=== PATIENT | female | born 1975 | race Caucasian/White ===

== ENCOUNTER 2016-07-20 05:00 | Inpatient (IN) | payer MEDICAID ==
[2016-07-18 12:57] LABS: BASOPHILS 0.6 % (0-2); EOSINOPHILS 7.3 % (0-7); HEMATOCRIT 36.9 % (36.0-48.0); HEMOGLOBIN 12.1 g/dL (12-16); IMMATURE GRANULOCYTES 0.2 % (0-5); LYMPHOCYTES 38.6 % (15-50); MCH 29.9 pg (26.0-34.0); MCHC 32.8 g/dL (31.0-37.0); MCV 91.1 fL (80.0-100.0); MEAN PLATELET VOLUME 10.5 fL (7.4-10.4); MONOCYTES 6.5 % (2-11); NEUTROPHILS 46.8 % (40-80); RBC 4.05 10x6/uL (4.00-5.40); RDW 12.9 % (11.5-14.5); WBC 6.2 10x3/uL (4.8-10.8)
[2016-07-18 12:58] LABS: PLATELET COUNT 261 10x3/uL (130-400)
[2016-07-18 13:09] LABS: CALCIUM 8.6 mg/dL (8.5-10.1); CARBON DIOXIDE 25.7 mmol/L (21.0-32.0); CHLORIDE - SERUM 107 mmol/L (98-107); CREATININE - SERUM 0.8 mg/dL (0.6-1.3); POTASSIUM - SERUM 4.1 mmol/L (3.5-5.1); SODIUM 141 mmol/L (136-145); UREA NITROGEN 12 mg/dL (7-18); eGFR NON AFRICAN AMERICAN 85 mL/min (90-120)
[2016-07-18 13:17] LABS: CALC OSMOLALITY 279 mosm/kg (275-300); GLUCOSE 87 mg/dL (74-106)
[~2016-07-20] VITALS: Ht 172.7 cm; Wt 100.0 kg
[2016-07-20] VITALS (15 sets, daily range): BP systolic 91–116; BP diastolic 56–72; Ht 172.7 cm; Wt 100.0 kg
[~2016-07-20 05:00] MED LIST: ALEVE220 MG PO; CLEOCIN HCL300 MG PO; HYDROCODON-ACE1 EAC7 PO; IBUPROFEN600 MG PO; OXYCODONE HCL10 MG PO; PERCOCET 5-3251 TAB PO; TENORMIN25 MG PO
[2016-07-20 06:33] LABS: HCG URINE NEGATIVE (NEGATIVE)
--- NOTE | 2016-07-20 07:32 | HP ---
PATIENT: IZABEL GREY MEDICAL RECORD: [id number] ACCOUNT: [id number] LOCATION:[facility] [place]- : 79 ADMISSION DATE: 07/20/16 HISTORY AND PHYSICAL EXAMINATION HISTORY OF PRESENT ILLNESS: This patient is a 41-year-old 1, para 1 white female with pelvic pain, described as bilaterally "in her ovaries." She has undergone a partial salpingectomy in the recent past and adhesions were noted at that time. She also was hospitalized shortly after surgery with pelvic infection. She desires hysterectomy and bilateral oophorectomy for relief of her pelvic pain. Most recent Pap smear in March and normal. MEDICAL HISTORY: DRUG ALLERGIES: None known. CURRENT MEDICATIONS: Prozac and atenolol. REVIEW OF SYSTEMS: No chest pain, no dyspnea. PAST MEDICAL HISTORY: Denies heart disease, diabetes or hypertension. FAMILY HISTORY: Noncontributory. SOCIAL HISTORY: Previously , now . HABITS: Smoker. She is cautioned regarding smoking prior to her surgical procedure and agrees not to do so. Ethanol, none. PHYSICAL EXAMINATION: VITAL SIGNS: Blood pressure 110/68, weight 220 pounds with a BMI of 33. HEENT: Grossly unremarkable. LUNGS: Clear. HEART: Regular rate and rhythm. ABDOMEN: Soft and nontender without distention. PELVIC: Examination is current and deferred for anesthesia. EXTREMITIES: No cyanosis, clubbing or edema. NEUROLOGIC: Grossly intact. IMPRESSION: Pelvic pain described as bilateral, history of a previous salpingectomy with adhesions noted. The patient desires hysterectomy with bilateral oophorectomy. Understanding that she will need hormones for relief of menopausal symptoms, have further discussed risks of surgery, anesthesia, infection, bleeding, injury to other organs, possibility of repeat surgeries, repeat hospitalization depending upon the problems. All questions were answered. PLAN: Total abdominal hysterectomy with bilateral oophorectomy, all indicated procedures. TRANSINT:[id number] Voice Confirmation ID: [id number] DOCUMENT ID: [id number] HISTORY AND PHYSICAL [id number] IZABEL GREY BRENDA MD at 0732 CC: [id number] DICTATION DATE: 07/18/16 1308 JALOUSIE INSTALLER: 07/18/16 1618 ADM IN [place] [id number] [place] [address]
--- NOTE | 2016-07-20 11:35 | NUR ---
RECIEVED PT FROM RR VIA BED. PT ANSWERS QUESTIONS APPROPRIATLEY AND DOZES OFF IN BETWEEN QUESTIONS. PT RATES PAIN 5/10 AT INCISION SITE. IV NOTED IN RIGHT HAND WITH LR INFUSING. SITE CLEAN DRY AND INTACT. BOWEL SOUNDS HYPOACTIVE X 4; PT DENIES PASSING GAS; BIKINI LINE INCISION NOTED TO BE CLEAN DRY AND INTACT WITH STERI STRIPS; VO CATH IN PLACE WITH 400MLS METH BLUE URINE NOTED IN COLLECTION BAG. SCD LEGGINGS CONNECTED TO PUMP AND TURNED ON PER RR RN. ICE PACK APPLIED TO INCISION, POC DISCUSSED WITH PT AND PT VERBALIZES UNDERSTANDING. FRESH WATER AND [place] [employer] [employer]A DRINK PROVIDED PER PT REQUEST. PT DENIES FURTHER NEEDS AT THIS TIME. IN REGARDS TO HOME MEDS, PT STATES, "I WAS ON ATENELOL AND SOMETHING FOR ANXIEY AND DEPRESSION, BUT I HAVE NOT TAKEN EITHER OF THEM IN A LONG TIME SO I GUESS I DONT HAVE HOME MEDS."
--- NOTE | 2016-07-20 12:00 | NUR ---
QUALITY CONTROL SYSTEMS MANAGER DEMEROL INITIATED PER ORDERS. TAY MARROQUIN RN WITNESSED. PT DEMONSTRATES UNDERSTANDING OF USE BY PRESSING BUTTON AT THIS TIME.
--- NOTE | 2016-07-20 13:00 | NUR ---
DR WELLINGTON CALLED FOR CLARIFICATION OF MED ORDERS. STATES TO HOLD ANSAID AND PEPCID UNTIL PATIENT IS NO LONGER ON LEAD PROJECT ENGINEER FOR PAIN CONTROL. PROCEED WITH TORADOL 30MG IV Q6HRS AT THIS TIME. PT S.O. HERE WITH PATIENT. PT BELONGINGS RETRIEVED FROM OUTPATIENT AND GIVEN TO S.O. AT THIS TIME. INCISION REMAINS C/D/I WITH STERI STRIPS. PT RATES PAIN 9/10 WITH MOVEMENT.
--- NOTE | 2016-07-20 13:10 | NUR ---
TORADOL 30MG GIVEN SLOW IVP.
--- NOTE | 2016-07-20 13:20 | NUR ---
PT TURNED TO RIGHT TILT POSITION AND COUGHS AND DEEP BREATHS. IS USED WITH GOOD EFFORT.
[2016-07-20 14:44] LABS: BASOPHILS 0.1 % (0-2); EOSINOPHILS 0 % (0-7); HEMATOCRIT 30.2 % (36.0-48.0); HEMOGLOBIN 9.9 g/dL (12-16); IMMATURE GRANULOCYTES 0.2 % (0-5); LYMPHOCYTES 4.9 % (15-50); MCH 30.1 pg (26.0-34.0); MCHC 32.8 g/dL (31.0-37.0); MCV 91.8 fL (80.0-100.0); MEAN PLATELET VOLUME 10.1 fL (7.4-10.4); MONOCYTES 1.5 % (2-11); NEUTROPHILS 93.3 % (40-80); PLATELET COUNT 232 10x3/uL (130-400); RBC 3.29 10x6/uL (4.00-5.40); RDW 12.8 % (11.5-14.5); WBC 11.5 10x3/uL (4.8-10.8)
--- NOTE | 2016-07-20 14:50 | NUR ---
FRESH ICE PACK APPLIED TO INCISION SITE, PT TURNED TO BACK PER REQUEST AND RAISED HIGHER IN THE BED. PT COUGHS AND DEEP BREATHES WITH GOOD EFFORT. RATES PAIN 6-7/10 AND DENIES NEEDS AT THIS TIME.
--- NOTE | 2016-07-20 16:00 | NUR ---
PT IN SEMI FOWLERS POSITION RESTING WITH EYES CLOSED. RESP. EVEN AND UNLABORED. NO DISTRESS NOTED.
--- NOTE | 2016-07-20 17:00 | NUR ---
MAISHA CARE GIVEN WITH BATH WIPES. PT USES IS X 5 UP TO 2000 AND COUGHS WITH STRONG EFFORT X 3. VO BAG READS 700MLS OF METH BLUE URINE, HOWEVER, AFTER EMPTYING BAG INTO [place] HAT ONLY 450MLS TOTAL VOLUME ACTUALLY PRESENT. BAG LEVEL SHOWED AN OUTPUT OF 300MLS FROM PT ARRIVAL TO FLOOR BUT ONLY 50MLS INCREASE ACCORDING TO ACTUAL TOTAL VOLUME. BAG MEASUREMENT NOT ACCURATE. WILL CONTINUE TO MONITOR. BLADDER NOT DISTENDED.
--- NOTE | 2016-07-20 18:15 | NUR ---
PT RESTING WITH EYES CLOSED. AROUSES TO VERBAL STIMULATION. PT COUGHS AND DEEP BREATHES WITH GOOD EFFORT. PT TILTED TO LEFT SIDE. 100MLS EMPTIED FROM VO MAKING TOTAL OUTPUT OF 550MLS SINCE INSERTION THIS AM. WILL REPORT TO PM SHIFT.
--- NOTE | 2016-07-20 19:43 | NUR ---
RCVD PT FROM Margaret TAMAYO RN. PT LYING ON BACK, HOB 45 DEGREES. PT AAOX3. RATES CURRENT PAIN 7/10 IN ABD AND DESCRIBES THIS BURNING/CRAMPING PAIN. PT REPORTS USING SCALE RECLAMATION TENDER. ADV PT WILL RETURN WITH NEXT DOSE OF TORADOL. PT VERBALIZED UNDERSTANDING. VSS. BREATH SOUNDS CLEAR & UNLABORED X2. HR-RRR, PPP, NO EDEMA NOTED TO BLE. PIV TO RT HAND PATENT, NO EYRTHEMA OR EDEMA NOTED TO SITE, INFUSING D5 LR @ 125ML/HR AND MEPERIDINE SCALE RECLAMATION TENDER. BOWEL SOUNDS HYPOACTIVE @ RLQ, ACTIVE X3. NO TENDERNESS TO ABD ON PALPATION OTHER THAN INCISION AREA. BLE C/D/I WITH STERISTRIPS OVER INCISION. SKIN RED AND COLD DUE TO ICE PACK. ADV PT WILL GIVE SKIN A REST FROM ICE. WILL RETURN WITH FRESH ICE CAP IN 1H. PUMPS CLEARED AT THIS TIME. 200ML CLEAR GREEN URINE NOTED IN VO. CLEAN GOWN PROVIDED AT THIS TIME. SCD'S IN PLACE AND CONNECTED TO PUMP. FRESH ICE WATER PROVIDED PER PT REQUEST. PT DENIES FURTHER NEEDS AT THIS TIME. BED LOW, WHEELS LOCKED, CL IN REACH, SIDE RAILS UP X2.
--- NOTE | 2016-07-20 20:01 | NUR ---
CURRENT D5LR INFUSION COMPLETE. OLD BAG DOWN, NEW BAG UP TO PRESENT TUBING. TORADOL 30MG/1ML GIVEN SIVP PER ORDERS. SEE EMAR. PT DENIES FURTHER NEEDS AT THIS TIME. WILL CONT. TO MONITOR.
--- NOTE | 2016-07-20 20:31 | NUR ---
PAIN REASSESSMENT COMPLETE. PT RATES PAIN 6/10 IN ABD AT THIS TIME. ADV PT TO USE LABORER DRIVER EACH TIME THE BUTTON TURNS GREEN. PT VERBALIZED UNDERSTANDING. 200 ML CLEAR GREEN URINE NOTED IN VO BAG. FRESH ICE PACK PLACED OVER INCISION. PT DENIES FURTHER NEEDS AT THIS TIME. LIGHTS DIMMED PER PT REQUEST.
--- NOTE | 2016-07-20 21:42 | NUR ---
ROUNDS MADE. PT REPOSITIONS SELF TO RT TILT WITH MINIMAL ASSISTANCE. PILLOW PLACED AT BACK FOR SUPPORT. PT RATES PAIN 5/10 CURRENTLY AND STATES "IT'S GETTING BETTER." VSS. 100 ML CLEAR GREEN TINGED URINE EMPTIED FROM VO BAG. BLADDER REMAINS NONDISTENDED. PT DENIES FURTHER NEEDS AT THIS TIME.
--- NOTE | 2016-07-20 22:37 | NUR ---
PT USES I.S. X10 PULLING 2000 ML. PT REPORTS DOING THIS Q1HR UP UNTIL NOW. FRESH CUP OF ICE WATER AND ORANGE POPSICLE PROVIDED PER PT REQUEST. 200ML EMPTIED FROM VO AT THIS TIME. PT DENIES FURTHER NEEDS. AND CONTS TO RATE PAIN 5/10. WILL CONT. TO MONITOR.
--- NOTE | 2016-07-20 23:43 | NUR ---
PT REPOSITIONED TO LT TILT WITH PILLOW @ BACK FOR SUPPORT. PT REPORTS PAIN IN RUQ, TENDER UPON PALPATION. PT REPORTS FEELING IF IT IS PULLING WHEN SHE MOVES HER RIGHT ARM. NO DISTENTION NOTED, ABD PALPATES SOFT. PT REPORTS PAIN IN SHOULDER WELL. ADV PT IT COULD BE GAS PAIN. PT REPORTS SHE HAS NOT PASSED GAS SINCE SURGERY. WILL CONT. TO MONITOR. 250 ML CLEAR SLIGHTLY GREEN TINGED URINE EMPTIED FROM VO BAG. VSS. PUMPS CLEARED AT THIS TIME. PT PUSHES RN CARDIOLOGY BUTTON AFTER REPOSITIONING AND STATES "THE PAIN MEDICINE HELPS SOME, BUT NOT COMPLETELY." ADV PT OF TORADOL SCHEDULE AND WILL REDOSE @ 0200. PT VERBALIZED UNDERSTANDING AND DENIES FURTHER NEEDS.
[2016-07-21] VITALS (17 sets, daily range): BP systolic 98–115; BP diastolic 53–67
--- NOTE | 2016-07-21 01:57 | NUR ---
PT LYING IN LT TILT AND AROUSES UPON THIS RN ENTERING ROOM. 200 ML CLEAR, GREEN TINTED URINE EMPTIED FROM VO AT THIS TIME. PUMPS CLEARED. PT REPOSITIONS SELF TO RT TILT WITH PILLOW @ BACK FOR COMFORT. PT PRESSES PIE MAKER BUTTON AT THIS TIME. FRESH ICE WATER AND FRESH ICE PACK FOR INCISION PROVIDED PER PT REQUEST. PT DENIES FURTHER NEEDS.
--- NOTE | 2016-07-21 02:10 | NUR ---
TORADOL 30MG/1ML GIVEN PER ORDERS. SEE EMAR. LIGHTS TURNED OFF PER PT REQUEST. WILL CONT. TO MONITOR.
--- NOTE | 2016-07-21 02:42 | NUR ---
PAIN REASSESSMENT COMPLETED. PT RESTING, EYES CLOSED, RESP EVEN & UNLABORED. PT LEFT UNDISTURBED AT THIS TIME.
--- NOTE | 2016-07-21 03:54 | NUR ---
CURRENT D5 LR INFUSION COMPLETE. OLD BAG DOWN, NEW BAG UP TO PRESENT TUBING. PT REPOSITIONS SELF TO LT TILT. PILLOW PLACED @ BACK FOR SUPPORT. 200ML CLEAR GREEN TINTED URINE NOTED IN VO BAG. PT DENIES NEEDS AT THIS TIME.
--- NOTE | 2016-07-21 05:21 | NUR ---
HAND I TUBE BENDER SYRINGE CHANGED. SYRINGE NOTED TO BE EMPTIED AND PLACED IN SHARPS CONTAINER IN ROOM. 200ML CLEAR GREEN URINE EMPTIED FROM VO BAG. PT'S FEET COVERED WITH EXTRA BLANKET PER REQUEST. PT DENIES FURTHER NEEDS AT THIS TIME.
[2016-07-21 05:30] LABS: HEMATOCRIT 25.6 % (36.0-48.0); HEMOGLOBIN 8.4 g/dL (12-16); MCH 29.6 pg (26.0-34.0); MCHC 32.8 g/dL (31.0-37.0); MCV 90.1 fL (80.0-100.0); MEAN PLATELET VOLUME 9.9 fL (7.4-10.4); RBC 2.84 10x6/uL (4.00-5.40); RDW 12.8 % (11.5-14.5); WBC 9.9 10x3/uL (4.8-10.8)
--- NOTE | 2016-07-21 06:12 | NUR ---
PAIN REASSESSMENT COMPLETED. PT RESTING WITH EYES CLOSED, RESP EVEN & UNLABORED. PT LEFT UNDISTURBED AT THIS TIME.
--- NOTE | 2016-07-21 06:26 | NUR ---
DR JERRY ON UNIT. REPORT GIVEN ON H&H OF 8.[address] JERRY ORDER PLACED FOR 2 UNITS OF PRBC.
--- NOTE | 2016-07-21 08:30 | NUR ---
IN ROOM ROUNDING ON PT. PHYSICAL ASSESSMENT DONE. SEE SHIFT ASSESSMEN. IV INFUSING VIA PUMP A 125ML/HR TO RIGHT HAND. SITE CLEAN DRY AND INTACT. BOWEL SOUNDS HYPOACTIVE IN RIGHT UPPER QUADRANT. PT DENIES PASSING GAS SINCE PROCEDURE. ABD NOT DISTENDED. BIKINI LINE INCISION NOTED TO BE C/D/I WITH STERI STRIPS. [address] DRAINING TO GRAVITY. 75MLS URINE IN COLLECTION CONTAINER. CATH DCD WITH CATH TIP INTACT. PT TOLERATED WELL. SCDS IN PLACE AND CONNECTED TO PUMP. CAR KNOCKER DISCONTINUED AND WASTED; IV SALINE LOCKED AT THIS TIME. PT DENIES FURTHER NEEDS AT THIS TIME.
--- NOTE | 2016-07-21 09:15 | NUR ---
PT AMBULATES TO RESTROOM PER SELF AND VOIDS 50MLS INTO [place].
--- NOTE | 2016-07-21 10:33 | NUR ---
ESTRADIOL PATCH PLACED ON RLQ OF PT ABDOMEN. PT INSTRUCTED ON NEW MEDICATION AND VERBALIZES UNDERSTANDING. EXPLAINED TO PT THAT MD WOULD STILL LIKE TO INFUSE PRBCS DUE TO AM LAB RESULTS. PT CONSENTS TO PROCEED WITH TRANSFUSION. 18G IV PLACED IN LEFT HAND X 1 ATTEMPT. PT TOLERATED WELL. PT RATING PAIN 5/10 AND REQUESTS PO PAIN MEDICATION AT THIS TIME.
--- NOTE | 2016-07-21 10:52 | NUR ---
OXYCODONE 5MG GIVEN PO FOR PT PAIN. SEE EMAR FOR DETAILS.
--- NOTE | 2016-07-21 11:15 | NUR ---
1ST UNIT PRBCS STARTED VIA PUMP AT 150ML/HR TO 18G IV IN LEFT HAND. PT TOLERATING WELL AT THIS TIME. CONTINUES TO REPORT FEELING TIRED. LEA SOSA VERIFIED BLOOD PRIOR TO INITIATION.
--- NOTE | 2016-07-21 13:35 | NUR ---
INFUSION OF FIRST UNIT OF PRBCS COMPLETED. LINE FLUSHED WITH NS. IV SALINE LOCKED. PT REQUESTS TO SHOWER. PT ASSISTED OUT OF BED AND AMBULATES PER SELF. PT VOIDS 200MLS GREEN TINGED URINE INTO [place] AND ASSISTED TO SHOWER. LINENS CHANGED AT THIS TIME. PT PROVIDED WITH PERSONAL HYGIENE PRODUCTS AND DENIES NEED FOR FURTHER ASSISTANCE. AYALA SOSA FROM [facility] REMAINS IN ROOM WITH PT THROUGHOUT SHOWER.
--- NOTE | 2016-07-21 14:30 | NUR ---
PT BACK IN BED AFTER SHOWER AND ORAL HYGIENE CARE DONE PER SELF. SCDS RECONNECTED. PT RATES PAIN 5-6/10 AT INCISION SITE AND REQUESTS TORADOL.
--- NOTE | 2016-07-21 14:42 | NUR ---
30MG TORADOL GIVEN SLOW IVP. SALINE LOCK FLUSED.
--- NOTE | 2016-07-21 14:50 | NUR ---
2ND UNIT PRBCS STARTED AND VERIFIED WITH AYALA SOSA FROM [facility]. UNIT # [id number]. LIGHTS DIMMED.
--- NOTE | 2016-07-21 16:54 | NUR ---
PT BACK TO BED AFTER VOIDING 300MLS OF GREENISH BLUE TINGED URINE INTO [place]. PT RATES PAIN 6/10 AND REQUESTS PAIN MEDICATION. OXYCODONE GIVEN PO, SEE EMAR. 1655 2ND UNIT OF PRBCS INFUSION COMPLETED AT THIS TIME. LINE FLUSHED WITH NS AND SALINE LOCKED. OLAMIDE LARIOS PROVIDED PER PT REQUEST. PT DENIES FURTHER NEEDS AT THIS TIME.
--- NOTE | 2016-07-21 19:14 | NUR ---
REPORT GIVEN TO 7 P SHIFT
--- NOTE | 2016-07-21 19:42 | NUR ---
RCVD PT FROM AM SHIFT FOR CONT. CARE. PT ON BACK IN BED @ SEMI PINO WITH C/O PAIN 05/16. PT AAOX3. DENIES PASSING GAS OR BM TODAY. BREATH SOUNDS CLEAR & UNLABORED X2. BOWEL SOUNDS ACTIVE X4. SOME TENDERNESS ON PALPATION AROUND INCISION AREA. BLE C/D/I WITH SOME REDNESS AND BRUISING NOTED AROUND ICISION AREA. PERIPAD PLACED OVER INCISION AND TEACHING PROVIDED ON KEEPING INCISION CLEAN AND DRY. PT VERBALIZED UNDERSTANDING. PT REPORTS VOIDING WITHOUT DIFFICULTY. ADV PT TO MEASURE NEXT 2 VOIDS IN ORDER TO ASSESS OUTPUT. PT VERBALIZED UNDERSTANDING. VSS, HR-RRR, PPP. NO EDEMA NOTED TO BLE. ADV PT TO AMB AROUND ROOM AND IN BARRERA TO ALLEVIATE GAS PAINS. PT VERBALIZED UNDERSTANDING. PIV TO LT HAND SL WITH NO ERYTHEMA OR EDEMA NOTED TO SITE. PT DENIES NEEDS AT THIS TIME. WILL CONT TO MONITOR. BED LOW, WHEELS LOCKED, CL IN REACH, SIDE RAILS UP X2.
--- NOTE | 2016-07-21 20:12 | NUR ---
PT AMB TO NURSE DESK. STEADY, BUT SLOW GAIT NOTED. PT AMB TO END OF BARRERA AND BACK TO ROOM WITH NO ASSISTANCE.
--- NOTE | 2016-07-21 20:52 | NUR ---
PEPCID 20 MG X1 TAB AND TORADOL 30MG/1ML GIVEN PER ORDERS. SEE EMAR. PT REPORTS PASSING GAS AFTER AMB AND STATES SHE'S FEELING SOMEWHAT BETTER. PT DENIES FURTHER NEEDS AT THIS TIME. WILL CONT. TO MONITOR.
--- NOTE | 2016-07-21 21:23 | NUR ---
PAIN REASSESSMENT COMPLETE. PT STATES "IT'S ABOUT THE SAME, BUT I THINK IT'S JUST GAS." PT IS UP TO BATHROOM AT THIS TIME WITH NO ASSISTANCE. STEADY GAIT NOTED. PT DENIES NEEDS AT THIS TIME. WILL CONT. TO MONITOR.
--- NOTE | 2016-07-21 21:45 | NUR ---
LYING ON BACK WITH EYES CLOSED. RESPIRATIONS REGULAR. 450CC GREEN COLORED URINE IN [place] HAT FROM LAST VOID.
--- NOTE | 2016-07-21 22:05 | NUR ---
425 ML GREEN URINE EMPTIED FROM [place] HAT PER Yudith GUERRIER RN. PT RINGS CL, REQUESTS THIS RN TO TURN AC UP BECAUSE SHE'S COLD. SAME PROVIDED. PT DENIES PAIN OR FURTHER NEEDS AT THIS TIME.
--- NOTE | 2016-07-21 23:08 | NUR ---
PT LYING ON BACK, EYES CLOSED, RESP EVEN & UNLABORED, PT LEFT UNDISTURBED AT THIS TIME.
--- NOTE | 2016-07-21 23:59 | NUR ---
LYING ON BACK WITH EYES CLOSED. RESPIRATIONS REGULAR.
[2016-07-22 01:56] VITALS: BP 115/57
--- NOTE | 2016-07-22 01:56 | NUR ---
PT LYING ON BACK AWAKE IN BED WITH NO C/O OF PAIN. PT REPORTS HAVING BM AND PASSING MORE GAS AND STATES "I FEEL BETTER NOW THAT THINGS ARE MOVING MORE." PT DENIES FURTHER NEEDS. WILL CONT. TO MONITOR.
--- NOTE | 2016-07-22 03:00 | NUR ---
PT RINGS CL, THIS RN TO BEDSIDE. PT REQUESTS & RECEIVES OXYCODONE IR PER ORDERS. SEE EMAR. PT RATES CURRENT PAIN 06/15. PT DENIES FURTHER NEEDS AT THIS TIME. 200 ML GREEN TINTED URINE EMPTIED FROM [facility] AT THIS TIME.
--- NOTE | 2016-07-22 03:45 | NUR ---
PT RESTING, EYES CLOSED, RESP EVEN & UNLABORED. PT LEFT UNDISTURBED AT THIS TIME.
--- NOTE | 2016-07-22 05:55 | NUR ---
PT RESTING, EYES CLOSED, RESP EVEN & UNLABORED. PT LEFT UNDISTURBED AT THIS TIME.
--- NOTE | 2016-07-22 06:36 | NUR ---
PT RINGS CL. THIS RN TO BEDSIDE. PT REQUESTS & RECEIVES FRESH ICE WATER. DENIES PAIN OR FURTHER NEEDS AT THIS TIME.
--- NOTE | 2016-07-22 08:25 | NUR ---
PATIENT GIVEN OXYCODONE AND PEPCID. SHE RATES HER PAIN A 5, WITH PRIMARY LOCATION OF PAIN ON THE RIGHT SIDE OF HER INCISION. SHE IS AMBULATORY AND GETTING UP TO THE RESTROOM INDEPENDENTLY. SHE HAS HAS A BOWEL MOVEMENT THIS MORNING. SHE IS EXPECTING TO GO HOME TODAY. ADVISED TO FILL OUT HER LUNCH MENU. SHE IS WITHOUT C/O NAUSEA, ATE A REGULAR DIET.
--- NOTE | 2016-07-22 09:47 | NUR ---
PATIENT RESTING IN HER BED WITH HOB UP 45 DEGREES. SHE STATES THAT HER PAIN IS A 4-5 IN HER INCISION THAT IS REALLY NOT THAT BAD UNTIL SHE MOVES AND THE PAIN IS SHARP. ENCOURAGED HER TO WALK A BIT, TO NURSERY WINDOWS AND BACK AT LEAST VIET HELP LOOSEN HER MUSCLES. SHE AGREED.
[2016-07-22 13:46] LABS: BASOPHILS 0.4 % (0-2); EOSINOPHILS 3.2 % (0-7); HEMATOCRIT 30.5 % (36.0-48.0); IMMATURE GRANULOCYTES 0.4 % (0-5); LYMPHOCYTES 28.7 % (15-50); MCH 29.2 pg (26.0-34.0); MCHC 32.8 g/dL (31.0-37.0); MCV 88.9 fL (80.0-100.0); MEAN PLATELET VOLUME 10.6 fL (7.4-10.4); MONOCYTES 8.3 % (2-11); PLATELET COUNT 169 10x3/uL (130-400); RDW 13.3 % (11.5-14.5); WBC 7.9 10x3/uL (4.8-10.8)
[2016-07-22 13:49] LABS: RBC 3.43 10x6/uL (4.00-5.40)
[2016-07-22] MEDS ORDERED: MEPERIDINE HCL50 MG PO (18:08)
[2016-07-22] MEDS ORDERED: IBUPROFEN600 MG PO ×2 (18:09→18:11)
[2016-07-22] MEDS ORDERED: ESTRADERM 0.00.05 MG TD (18:09)
--- NOTE | 2016-07-22 19:19 | NUR ---
IV REMOVED FROM THE LEFT FA. CATHETER WAS FULLY INTACT. HER MANAGER CASH WILL BE HERE AT 8PM TODAY. ORAL PAIN MEDICATION GIVEN. FRESH WATER GIVEN WELL. PATIENT DENIES ANY BLEEDING TODAY.
--- NOTE | 2016-07-26 08:38 | OP ---
PATIENT NAME: IZABEL GREY MEDICAL RECORD: [id number] :79 LOCATION:[place] [facility].1274 ADMISSION DATE:07/20/16 SURGEON: NELIDA WELLINGTON MD DATE OF OPERATION: 07/20/2016 PREOPERATIVE DIAGNOSES: Pelvic pain, history significant pelvic surgery and adhesion, previous salpingectomy. POSTOPERATIVE DIAGNOSES: Extensive adhesions in the pelvis, ovaries, uterus, cervix to bowel and sidewall. PROCEDURE: Supracervical hysterectomy, bilateral oophorectomy, extensive lysis of adhesions. SURGEON: Nelida Wellington MD and Alberto Ocampo MD consulted regarding integrity of the bowel. ANESTHESIA: General. FINDINGS: Extensive dense adhesions of the uterus, ovaries to pelvic sidewall and bowel, status post bilateral salpingectomy. ESTIMATED BLOOD LOSS: 800 cc. COMPLICATIONS OF SURGERY: None. OPERATIVE NOTE: The patient was taken to the OR and under adequate general anesthesia, was prepped and draped in the usual manner for abdominal procedures. A transverse incision was made in the lower abdomen and extended in a Pfannenstiel manner through subcutaneous tissue and fascia, dividing muscles in the midline. Peritoneum was then elevated and incised and this incision extended from the symphysis pubis to within a 7 cm of the umbilicus, avoiding the bladder and abdominal organs. Findings were as listed above, extensive lysis of adhesions was necessary to identify the uterine fundus and both ovaries. Tubes not identified as the patient had a previous salpingectomy. Round ligaments were obliterated after dissecting the uterine fundus free. Clamps were placed across the uteroovarian ligaments bilaterally and #1 Chromic suture used to provide hemostasis. After severing the ligaments, thyroid tenaculum was placed on the uterine fundus for elevation and the anterior portion of the uterus was then freed from adhesions anteriorly to the bladder. Indigo carmine had been injected transvenously early in the case in order to confirm integrity of the urinary tract throughout this dissection. There was no evidence of spillage during the entire surgery. After ligating the uterine vessels bilaterally using Gianluca clamps and #1 chromic suture, the uterine fundus was amputated because of the dense adhesions of the cervix. Decision was made for a supracervical hysterectomy. Attention was then turned to the right ovary, which took extensive lysis of adhesions to remove. The infundibulopelvic ligament was then ligated using #1 chromic suture. Identical procedure was carried out on the left. During dissection of the left ovary, an area of the bowel was in question and Dr. Ocampo was consulted to confirm integrity of the bowel. He dissected this area and confirmed bowel was indeed intact. At the end of procedure, the uterine fundus and both ovaries had been removed and sent as a pathologic specimen. There was also stray nylon suture that was removed and sent with pathology specimen. The pelvis was copiously irrigated and suctioned and hemostasis was confirmed. Leland was applied to all pedicles. OPERATIVE REPORT [id number] IZABEL GREY Sponge, needle counts were correct. The fascial layer was then closed in a running noninterlocking #1 PDS loop suture. Skin reapproximated with 2-0 plain gut suture in 2 layers, the final layer is subcuticular. Dermabond was then applied, a Steri-Strip dressing was applied and the patient went to the recovery area in good condition. TRANSINT:[id number] Voice Confirmation ID: [id number] DOCUMENT ID: [id number] NELIDA WELLINGTON MD at 0838 CC: [id number] DICTATION DATE: 07/20/16 1049 CASH TELLER: 07/20/16 1325 DIS IN 07/22/16 [facility] [address] [place] [address]
--- NOTE | 2016-07-26 10:04 | OP ---
PATIENT NAME: IZABEL GREY MEDICAL RECORD: [id number] :79 LOCATION:[facility].1274 ADMISSION DATE:07/20/16 SURGEON: SARBJIT HUNTER MD DATE OF OPERATION: 07/20/2016 [employer] Salesperson's Note I was called to Dr. Roldan's room. She was concerned about a sigmoid colon injury. I examined the sigmoid colon after scrubbing in. I entered the inner sigmoid fossa. I began to takedown the left white line of Toldt. This aided the mobilization of the sigmoid colon. I evaluated the sigmoid colon, very carefully. There was no ureteral injury. I noted no full thickness colonic injury. No repair was indicated. TRANSINT:[id number] Voice Confirmation ID: [id number] DOCUMENT ID: [id number] SARBJIT HUNTER MD at 1004 CC: [id number] DICTATION DATE: 07/20/16 1012 ENGRAVER STEEL PLATE: 07/20/16 1132 DIS IN 07/22/16 [facility] [address] [place] [address]
== END 2016-07-22 20:05 | disposition home or self-care (01) | DRG 743 ==
LOC: D.SDCHOLD 05:00 → D.LD 11:18
PROVIDERS: Obstetrics & Gynecology; ADMIT Obstetrics & Gynecology
PROC: 0DNN0ZZ Release Sigmoid Colon, Open Approach (ICD-10-PCS; 2016-07-20)
PROC: 0UN20ZZ Release Bilateral Ovaries, Open Approach (ICD-10-PCS; 2016-07-20)
PROC: 0UN90ZZ Release Uterus, Open Approach (ICD-10-PCS; 2016-07-20)
PROC: 0UT20ZZ Resection of Bilateral Ovaries, Open Approach (ICD-10-PCS; 2016-07-20)
PROC: 0UNC0ZZ Release Cervix, Open Approach (ICD-10-PCS; 2016-07-20)
PROC: 0UT90ZZ Resection of Uterus, Open Approach (ICD-10-PCS; principal; 2016-07-20 07:30)
DX: N73.6 Female pelvic peritoneal adhesions (postinfective) (principal); R10.2 Pelvic and perineal pain